=== PATIENT | female | born 1980 | race African-American/Black ===

== ENCOUNTER 2024-06-03 20:19 | Emergency (ER) | payer OTHER, SELFPAY ==
[2024-06-03 20:21] VITALS: BP 138/88
[2024-06-03 21:06] VITALS: BMI 29.5
[2024-06-03 22:28] VITALS: BP 127/77
--- NOTE | 2024-06-03 22:33 | ED.GENMED ---
History of Present Illness
General
Chief Complaint: Headache
Source: patient
Exam Limitations: none
Time Seen by Provider: 06/03/24 20:56
Nursing documentation reviewed up to this point in time: agreed with
History of Present Illness
History of Present Illness:
Patient to ED with complaint of severe headache x 2 days. No history of trauma. Denies fever/chills. Taking ibuprofen and tylenol without relief. Brought self to ED for eval.
Past History
Past History
ED Past Medical History: Other (Multiparous) and Other (Von Willebrand disease)
ED Past Surgical History: Gynecological (Tubal ligation, D&E x3, LEEP biopsy) and Other (Cyst removal and vocal cords)
Social History
Tobacco: Non-smoker
Alcohol: None
Drug: None
Living: with family
Employment: Employed
Review of Systems
Review of Systems
Allergies reviewed?: Yes
All Other Systems: ROS reviewed and negative except as documented in HPI and ROS
Constitutional: Reports no symptoms
EENT: Reports no symptoms
Respiratory: Reports no symptoms
Cardiac: Reports no symptoms
ABD/GI: Reports no symptoms
: Reports no symptoms
Musculoskeletal: Reports no symptoms
Skin: Reports no symptoms
Neurological: Reports headache
Psychiatric: Reports no symptoms
Phy Exam
General Physical Exam
General Presentation: well appearing and mild distress
General age: appears stated age
General Skin: warm and dry
General Habitus: normal
General Mental: alert
General Hydration: appears well hydrated
Neurological Exam
Neurological Exam: alert, oriented x3, CN II-XII intact, no motor deficits, no sensory deficits, speech normal and normal gait
[place] Coma Scale
Eye Opening: Spontaneous
Verbal Response: Oriented
Motor Response: Obeys Commands
GCS Total Score: 15
Musculoskeletal Exam
Musculoskeletal Exam: full ROM and neuro vasc intact
Skin Exam
Skin Exam: normal color, warm/dry and no rash
Psychiatric Exam
Psychiatric Exam: normal mood/affect
Course
Orders/Labs/Results
Orders:
Orders
06/03/24 20:28
Influenza A+B Rapid Molecular Urgent
SAIMA Source: Nasal Swab
Specimen Description:
06/03/24 21:[address] [CT Sinuses W/o Iv Contrast] Urgent
Comment:
Reason For Exam: atypical headache
06/03/24 21:17
CT Head W/o Iv Contrast Urgent
Comment:
Reason For Exam: atypical headache
06/03/24 22:29
Ketorolac [Toradol] 30 mg IV NOW STA
Ondansetron Injectable [Zofran] 4 mg IV NOW STA
06/03/24 23:05
Dexamethasone Sod Phosphate [Decadron] 10 mg IV NOW STA
Vital Signs
Initial and Last Documented VS:
Initial Vital Signs
Temp Pulse Resp BP Pulse Ox
98 F 74 22 138/88 100
06/03/24 20:21 06/03/24 20:21 06/03/24 20:21 06/03/24 20:21 06/03/24 20:21
Last Documented Vital Signs
Temp Pulse Resp BP Pulse Ox
98 F 60 20 127/77 99
06/03/24 20:21 06/04/24 00:05 06/04/24 00:05 06/03/24 22:28 06/04/24 00:05
*Radiology
Radiology exam reviewed: radiology read reviewed
*Pulse Oximetry
Patient hypoxic: no
*Critical Care Note
Total Time (30-74mins, 75-104mins- exclusive of procedures): Not Applicable
Update Note
Update Note:
Patient to ED with complaint of severe headache. Taking tylenol and ibu without improvement. VSS, remains afebrile. No meningeal s/s. Improvement with IV toradol and fluids. Given dose of IV decadron also. Labs, CT report reviewed with
patient. No concerning findings on exam ton ight. WIll discharge home. Given instructions on s/s to return to ED and she is agreeable to plan.
ED Attending Note
-
Portions of this chart may have been created with voice recognition software.� Occasional wrong word or��sound alike� substitutions may have occurred due to the inherent limitations of voice recognition software.
Discharge Plan
Departure
Patient Disposition: Home (Routine Discharge)
Date of Disposition: 06/03/24
Time of Disposition: 23:27
Patient with high blood pressure during this ER visit?: No
Condition: Good
Covid-19: Not Applicable
Discharge Problem:
Acute headache
Instructions: Headache, Adult (DC)
Prescriptions:
No Action
omeprazole 40 MG capsule,delayed release(DR/EC)
40 mg PO DAILY
Multivitamin [Daily [place]] 1 EACH Tablet
1 ea PO DAILY
albuterol sulfate 1 PUFF HFA aerosol inhaler
2 puff inhalation R Q4HPRN PRN (Reason: wheezing)
tramadol 50 MG tablet
50 mg PO Q6HPRN PRN (Reason: pain) Qty: 15 0RF
Referrals:
UNKNOWN - PT DOES,NOT KNOW [Family Provider] -
Stand Alone Forms: Return to Work
Activity Restrictions/Additional Instructions:
Follow up with your family doctor. REturn to the emergency department immediately for any changes in/worsening of your symptoms.
Interventions
Interventions:
*Risk Screen - Suicide Last Done: 06/03/24 20:21
*General Assessment Last Done: 06/04/24 00:05
*Neglect/Abuse Screening Last Done: 06/03/24 20:21
ED- Fall Risk Assessment Last Done: 06/03/24 21:06
*ED COVID-19 Vaccine History Last Done: 06/03/24 20:56
*Nursing Disposition Last Done: 06/04/24 00:05
ED- Neurological Assessment Last Done: 06/03/24 21:06
Discharge Date and Time
Discharge Date/Time: 06/04/24 00:00
Print Language: SLOVENIAN
[2024-06-03] MEDS: ZOFRAN 4 MG IV (22:40)
[2024-06-03] MEDS: TORADOL 30 MG IV (22:41)
[2024-06-03] MEDS: DECADRON 10 MG IV (23:23)
== END 2024-06-04 | disposition home or self-care (01) ==
LOC: EMR 20:19
PROVIDERS: EMERGENCY PHYSICIAN Emergency Medicine
DX: R51.9 Headache, unspecified (principal); R09.89 Other specified symptoms and signs involving the circulatory and respiratory systems; D68.00 Von Willebrand disease, unspecified; Z88.1 Allergy status to other antibiotic agents; Z91.040 Latex allergy status; Z91.018 Allergy to other foods; E78.5 Hyperlipidemia, unspecified; K57.92 Diverticulitis of intestine, part unspecified, without perforation or abscess without bleeding; Z86.16 Personal history of COVID-19; K21.9 Gastro-esophageal reflux disease without esophagitis; D64.9 Anemia, unspecified
CPT/HCPCS: 99284; 96374; 96375 ×2; 70450; 70486; 87502